=== PATIENT | female | born 1945 | race African-American/Black ===

== ENCOUNTER 2017-06-15 10:19 | Day surgery (SDC) | payer BC ==
[~2017-06-15] VITALS: Ht 167.6 cm; Wt 68.0 kg
--- NOTE | ~2017-06-15 | EGD ---
EGD REPORT [facility] [address] [address] NAME: DAYANA MAY : [birth year] STATUS : REG [facility] PAT#: [id number] AGE: 72 ADM/REG DATE : 06/15/17 MR#: [id number] REPORT SERV DATE: 06/15/17 DICTATED BY: TYLER LEAVITT DATE: 06/15/17 REPORT STATUS : Draft TRANSCRIBED BY: [facility] DATE: 06/15/17 Pulmonology Patient Name: Dayana May Procedure Date: 06/15/2017 12:56 PM Date of : 1945 Attending MD: ROBERTO LEAVITT MD Procedure Date No Time: 06/15/2017 Procedure: EBUS Navigational Bronchoscopy Indications: LLL lung mass, mediastinal adenopathy, history of lung cancer s/p RLL lobectomy Providers: ROBERTO LEAVITT MD Referring MD: BELLA ONEIL MD Medicines: Lidocaine 2% 20 mL Complications: No immediate complications Procedure: Pre-Anesthesia Assessment: - ASA Grade Assessment: III - A patient with severe systemic disease. - A History and Physical has been performed. Patient meds and allergies have been reviewed. The risks and benefits of the procedure and the sedation options and risks were discussed with the patient. All questions were answered and informed consent was obtained. Patient identification and proposed procedure were verified prior to the procedure by the physician and the nurse in the pre-procedure area in the procedure room. Mental Status Examination: alert and oriented. Airway Examination: normal oropharyngeal airway. Respiratory Examination: clear to auscultation and poor air movement. CV Examination: normal and RRR, no murmurs, no S3 or S4. ASA Grade Assessment: III - A patient with severe systemic disease. After reviewing the risks and benefits, the patient was deemed in satisfactory condition to undergo the procedure. The anesthesia plan was to use general anesthesia. Immediately prior to administration of medications, the patient was re-assessed for adequacy to receive sedatives. The heart rate, respiratory rate, oxygen saturations, blood pressure, adequacy of pulmonary ventilation, and response to care were monitored throughout the procedure. The physical status of the patient was re-assessed after the procedure. After obtaining informed consent, the Bronchoscope was introduced through the mouth, via the endotracheal tube (the patient was intubated for the procedure) and advanced to the tracheobronchial tree. the BF [id number] was introduced through the mouth, via the EGD REPORT [address] [address] NAME: DAYANA MAY : [birth year] STATUS : REG [facility] PAT#: [id number] AGE: 72 ADM/REG DATE : 06/15/17 MR#: [id number] REPORT SERV DATE: 06/15/17 DICTATED BY: TYLER LEAVITT DATE: 06/15/17 REPORT STATUS : Draft TRANSCRIBED BY: [employer] [facility] DATE: 06/15/17 endotracheal tube (the patient was intubated for the procedure) and advanced to the tracheobronchial tree. The procedure was accomplished without difficulty. The patient tolerated the procedure well. Findings: The endotracheal tube is in good position. The visualized portion of the trachea is of normal caliber. The malina is sharp. The tracheobronchial tree was examined to at least the first subsegmental level. RLL lobectomy staple site intact with no endobronchial granulation tissue. The LLL had a small friable endobronchial lesion. Endobronchial biopsies were performed and sent for histopathology. Using SuperDimension Edge catheter 180, Bodyvision guidance, peripheral probe EBUS 17s, and fluoroscopy, I performed the following biopsies: LLL lung mass transbronchial needle aspirates x 5 passes for cytology LLL lung mass transbronchial brush biopsy x 1 pass for cytology LLL lung mass transbronchial forcep biopsies x 4 passes for histopathology EBUS TBNA of lymph node level 11R x 4 passes for cytology EBUS TBNA of lymph node level 4R x 4 passes for cytology EBUS TBNA of lymph node level 7 x 4 passes for cytology EBUS TBNA of lymph node level 4L x 4 passes for cytology EBUS TBNA of lymph node level 11L x 4 passes for cytology Bronchoalveolar lavage was performed in the left lower lobe of the lung and sent for routine cytology. 20 mL of fluid were instilled. 10 mL were returned. The return was blood-tinged and cellular. 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 Patient enrolled in the bodyvision 3D flouroscopy trial. Recommendation: - Await test results. - Chest X-ray. - Follow up with referring physician, Dr. Oneil. - Recommend MRI of the brain with and without contrast to complete staging Attending Participation: I personally performed the entire procedure. ROBERTO LEAVITT MD 06/15/2017 2:17 PM This report has been signed electronically. Number of Addenda: 0 Note Initiated On: 06/15/2017 12:56 PM [address] [address]
--- NOTE | ~2017-06-15 | CN ---
Consultation Report [facility] [address] [place]. [address] NAME: DAYANA MAY : [birth year] STATUS : [place] [facility] PAT#: [id number] AGE: 72 ADM/REG DATE : 06/15/17 MR#: [id number] REPORT SERV DATE: 06/17/17 DICTATED BY: JEROD LEAVITT DATE: 06/17/17 REPORT STATUS : Draft TRANSCRIBED BY: [facility] DATE: 06/17/17 DATE OF CONSULTATION: Dear Dr. Davis: Thank you for requesting my opinion regarding evaluation and management of Ms. Dayana May' 7 cm cavitating left lower lobe lung mass with mediastinal lymphadenopathy. Ms. May is a pleasant 72-year-old female with a significant past medical history of COPD, hypertension, active tobacco abuse, breast cancer, status post right lower lobe lobectomy for non-small cell lung cancer, who presents to [facility] with a new 7 cm cavitating mass in the left lower lobe, likely representing bronchogenic carcinoma with left hilar and mediastinal lymphadenopathy including upper and lower right paratracheal lymph nodes and/or mucous impaction in the segmental bronchi of the left lower lobe. Ms. May states that she has chronic shortness of breath well localized to the chest, nonradiating with no significant alleviating or exacerbating factors. REVIEW OF SYSTEMS: A detailed 14-point review of systems was completed. Pertinent positives and negatives are listed above. PAST MEDICAL HISTORY: 1. Right lower lobe lung cancer, status post lobectomy. 2. Hypertension. 3. Tobacco abuse. 4. Breast cancer. 5. COPD. PAST SURGICAL HISTORY: Appendectomy and gallbladder surgery approximately in 1996, left breast lumpectomy in 07/2010, right lung lobectomy in 08/2010, colonoscopy 10 years ago. FAMILY HISTORY: Noncontributory. SOCIAL HISTORY: The patient continues to smoke. She denies any significant alcohol or illicit drug abuse. PHYSICAL EXAMINATION: VITAL SIGNS: Reviewed and located in the paper chart. GENERAL: In no acute distress, able to communicate in full paragraphs at a time. HEENT: Normocephalic and atraumatic. Pupils are equal, round, and reactive to light and accommodation. Posterior oropharynx is clear. NECK: No JVD. No LAD. Trachea midline. CARDIOVASCULAR: Regular rate and rhythm. S1 and S2 present. LUNGS: Coarse bilateral breath sounds. End-expiratory wheezes. ABDOMEN: Nontender. Nondistended. Soft. Positive bowel sounds. Consultation Report [place] [place] [address] [place]. [address] NAME: DAYANA MAY : [birth year] STATUS : REG [facility] PAT#: [id number] AGE: 72 ADM/REG DATE : 06/15/17 MR#: [id number] REPORT SERV DATE: 06/17/17 DICTATED BY: JEROD LEAVITT DATE: 06/17/17 REPORT STATUS : Draft TRANSCRIBED BY: SAURABH DATE: 06/17/17 EXTREMITIES: No clubbing, cyanosis, or edema. SKIN: No new rashes, lesions, or ulcers. PSYCHIATRIC: Alert and oriented x3. Appropriate mood and affect. Appropriate insight and judgment. NEUROLOGIC: 5/5 strength in upper and lower extremities. Cranial nerves 2 through 12 intact. Gait not tested. DTRs not performed. CT scan performed at [facility] by DARON on 05/19/[address] Shyam Prather was personally reviewed by me and I agree with the following interpretation: 1. 7 cm cavitating mass in the left lower lobe likely representing bronchogenic carcinoma with left hilar and mediastinal lymphadenopathy including upper and lower right paratracheal lymph nodes. Tumor and/or mucoid impaction obstructing the segmental bronchial of the left lower lobe. Recommend EBUS, bronchoscopy, or CT-guided FNA if contraindication or unsuccessful endobronchial attempt. 2. Moderate centrilobular and paraseptal emphysema with biapical pleural parenchymal scarring and several nonspecific subcentimeter right pulmonary nodules. ASSESSMENT AND PLAN: Ms. Dayana May is extremely pleasant 72-year-old female with a significant past medical history of non-small cell lung cancer, status post right lower lobe lobectomy by Dr. Bandar Pratt and left breast cancer, who presents to [facility] with a new 7 cm cavitating mass in the left lower lobe with local regional mediastinal lymphadenopathy. The clinical and radiographic presentation are consistent with cancer until proven otherwise. Other potential etiologies include a large lung abscess, although she lacks a constitutional symptoms. At this point, Ms. May would benefit from a diagnostic intervention. We discussed in detail potential options including CT-guided needle biopsy, thoracic surgical biopsy, or EBUS and navigation bronchoscopy. After careful discussion of the risks, benefits, and alternatives to each of these options, we agreed to proceed forward with EBUS and navigation bronchoscopy. The patient is aware that the procedure is associated with potential life- threatening risks including lung collapse, respiratory failure, and even . RECOMMENDATIONS: A summary of my recommendations are as follows: 1. Proceed with EBUS and navigation bronchoscopy. 2. Follow up with Dr. Jovanny Davis as previously scheduled. 3. Patient consented to the body vision 3D fluoro clinical trial. 4. Further recommendations will be outlined in the operative report located in [facility]. Thank you for allowing me to participate in Ms. Dayana May' care. JADE/SAURABH Consultation Report [address] [place]. [address] NAME: DAYANA MAY : [birth year] STATUS : REG [facility] PAT#: [id number] AGE: 72 ADM/REG DATE : 06/15/17 MR#: [id number] REPORT SERV DATE: 06/17/17 DICTATED BY: JEROD LEAVITT DATE: 06/17/17 REPORT STATUS : Draft TRANSCRIBED BY: SAUR[facility]H DATE: 06/17/17 Jerod Leavitt M.D. / [id number] CC: Laverne Heredia
[~2017-06-15 10:19] MED LIST: ALEVE220 MG PO; ASA5GR PO; CRESTOR10 PO; FOSAMAX70 MG PO; MULTIPLE VIT PO; PROAIR HFA INH; PROTONIX PO; SINGULAIR1 PO; SPIRIVA INH; [UNRECOGNIZED DRUG - OTHER] PO
[2017-06-15 10:45] LABS: BASOPHILS 1.1 %; BASOPHILS ABSOLUTE 0.07 10/3/uL (0.0-0.16); EOSINOPHILS 2.1 %; EOSINOPHILS ABSOLUTE 0.13 10/3/uL (0.0-0.53); HEMATOCRIT 39.6 % (36.0-48.0); HEMOGLOBIN 12.2 g/dL (12.0-16.0); IMMATURE GRANULOCYTES 0.2 %; IMMATURE GRANULOCYTES ABSOLUTE 0.01 10/3/uL (0.0-0.11); LYMPHOCYTES 40.2 %; LYMPHOCYTES ABSOLUTE 2.55 10/3/uL (0.67-4.30); MANUAL DIFF NO %; MEAN CORPUS HGB CONC 30.8 g/dL (32.0-36.0); MEAN CORPUSCULAR HEMOGLOB 27.3 pg (26.0-34.0); MEAN CORPUSCULAR VOLUME 88.6 fL (80-100); MEAN PLATELET VOLUME 8.9 fL (9.2-13.0); MONOCYTES 8.2 %; MONOCYTES ABSOLUTE 0.52 10/3/uL (0.21-1.20); NEUTROPHILS 48.2 %; NEUTROPHILS ABSOLUTE 3.06 10/3/uL (2.02-8.40); PLATELET COUNT 341 10/3/uL (150-400); RBC DISTRIBUTION WIDTH 14.4 % (12.0-16.0); RED CELL COUNT 4.47 10/6/uL (4.0-5.6); WHITE BLOOD CELLS 6.3 10/3/uL (4.5-10.5)
[2017-06-15 10:52] LABS: PARTIAL THROMBO TIME 27.9 SEC (22.5-37.2); PROTIME (NOT ORD) 13.4 SEC (12.0-14.5)
[2017-06-15 18:30] LABS: BD FL LYMPH (NOT ORD) 62 %; BD FL SOURCE (NOT ORD) BAL; BF BASO (NOT OF) 0 %; BF LARGE MONONUCLEAR 36 %; BODY FLUID EOS (NOT ORD) 0 %; BODY FLUID SEG (NOT ORD) 2 %
[2017-06-15 19:09] LABS: BF TOTAL CELL CT (NOT ORD 3005 /MM3; BODY FLUID RBC (NOT ORD) < 1000 /MM3
== END 2017-06-15 23:59 | disposition home or self-care (01) ==
LOC: DMU 10:19
PROVIDERS: Internal Medicine
PROC: 07974ZX Drainage of Thorax Lymphatic, Percutaneous Endoscopic Approach, Diagnostic (ICD-10-PCS; principal; 2017-06-15 11:00)
PROC: BB1 Imaging, Respiratory System, Fluoroscopy (ICD-10-PCS; 2017-06-15 11:00)
PROC: 0BBJ8ZX Excision of Left Lower Lung Lobe, Via Natural or Artificial Opening Endoscopic, Diagnostic (ICD-10-PCS; 2017-06-15 11:00)
PROC: 8E0WXBF Computer Assisted Procedure of Trunk Region, With Fluoroscopy (ICD-10-PCS; 2017-06-15 11:00)
PROC: 0BBB8ZX Excision of Left Lower Lobe Bronchus, Via Natural or Artificial Opening Endoscopic, Diagnostic (ICD-10-PCS; 2017-06-15 11:00)
PROC: 0BBB8ZX Excision of Left Lower Lobe Bronchus, Via Natural or Artificial Opening Endoscopic, Diagnostic (ICD-10-PCS; 2017-06-15 11:00)
DX: C34.90 Malignant neoplasm of unspecified part of unspecified bronchus or lung (principal); J98.4 Other disorders of lung; I10 Essential (primary) hypertension; J44.9 Chronic obstructive pulmonary disease, unspecified; E78.00 Pure hypercholesterolemia, unspecified; M19.90 Unspecified osteoarthritis, unspecified site; F17.210 Nicotine dependence, cigarettes, uncomplicated; Z90.2 Acquired absence of lung [part of]; Z85.118 Personal history of other malignant neoplasm of bronchus and lung; Z90.89 Acquired absence of other organs; Z90.49 Acquired absence of other specified parts of digestive tract; Z98.890 Other specified postprocedural states; Z79.1 Long term (current) use of non-steroidal anti-inflammatories (NSAID)
CPT/HCPCS: 71010; 85025; 85610; 85730; 87015; 87070; 87102; 87116; 87205; 88112; 88172; 88173; 88305; 88333; 88344; 89051; 93005; C1725; C1769; J3010